=== PATIENT | female | born 1950 | race Two or more races ===

== ENCOUNTER 2020-03-10 11:01 | Inpatient (IN) | payer OTHER ==
[~2020-03-10] VITALS: Ht 152.4 cm; Wt 73.0 kg
[2020-03-29] MEDS ORDERED: PAXIL CR37.5 MG PO (12:17)
[2020-04-05] MEDS ORDERED: PANTOPRAZOLE SO40 MG PO (16:33)
[2020-04-08] MEDS ORDERED: PERCOCET 5-3251 EACH PO (14:22)
[2020-04-08] MEDS ORDERED: PRILOSEC OTC20 MG PO (14:22)
[2020-04-08] MEDS ORDERED: INTESTINEX680 M1 PO (14:22)
== END 2020-04-08 19:43 | disposition home or self-care (01) | DRG 331 ==
LOC: RECOVERY 04-05 07:00 → O/R 04-05 07:17 → SURH 04-05 07:17 → RECOVERY 04-05 11:30 → SURH 04-05 17:30
PROVIDERS: ADMIT Surgery; ATTEND Surgery
PROC: 0DBN4ZZ Excision of Sigmoid Colon, Percutaneous Endoscopic Approach (ICD-10-PCS; 2020-04-05)
PROC: 0DTJ4ZZ Resection of Appendix, Percutaneous Endoscopic Approach (ICD-10-PCS; 2020-04-05)
PROC: 0DJD8ZZ Inspection of Lower Intestinal Tract, Via Natural or Artificial Opening Endoscopic (ICD-10-PCS; 2020-04-05)
PROC: 0DBP4ZZ Excision of Rectum, Percutaneous Endoscopic Approach (ICD-10-PCS; principal; 2020-04-05 07:00)
DX: K57.30 Diverticulosis of large intestine without perforation or abscess without bleeding (principal); F41.9 Anxiety disorder, unspecified; G47.33 Obstructive sleep apnea (adult) (pediatric); F32.9 Major depressive disorder, single episode, unspecified; I34.1 Nonrheumatic mitral (valve) prolapse; E78.5 Hyperlipidemia, unspecified